=== PATIENT | male | born 1975 | race Hispanic/Latino ===

== ENCOUNTER 2019-09-04 13:14 | Emergency (ER) | payer SELFPAY ==
[~2019-09-04] VITALS: Ht 175.3 cm; Wt 80.7 kg
[2019-09-04] MEDS ORDERED: CLINDAMYCIN PHOS 600 MG/ 4 ML VIAL IM ONE (14:00)
[2019-09-04 15:01] VITALS: BP 123/76
== END 2019-09-04 15:06 | disposition home or self-care (01) ==
LOC: ER 13:14
DX: L73.2 Hidradenitis suppurativa (principal)
CPT/HCPCS: 99282